=== PATIENT | male | born 1965 | race Caucasian/White ===

== ENCOUNTER → 2020-08-28 07:58 | Outpatient (CLI) | payer OTHER, SELFPAY ==
--- NOTE | ~2020-08-28 | XR_ITS ---
EXAMINATION: XR knee RT 3V DATE: 08/28/2020 08:12 INDICATION: Right knee pain. TECHNIQUE: 3 views of right knee were obtained. COMPARISON: None. FINDINGS: Bone alignment is normal. No fracture. There is mild tricompartmental osteoarthritis charac terized by tiny marginal osteophytes. There is a small knee joint effusion. IMPRESSION: 1. Mild right knee osteoarthritis. 2. Small right knee joint effusion. Reviewed, dictated and finalized at location A.
== END ==
PROVIDERS: PCP Family Medicine; Visit Provider Nurse Practitioner Family
DX: M17.11 Unilateral primary osteoarthritis, right knee (principal); M25.461 Effusion, right knee
CPT/HCPCS: 73562

== ENCOUNTER 2020-08-28 10:08 | Outpatient (CLI) | payer OTHER, SELFPAY ==
--- NOTE | 2020-08-28 10:53 | EST_ITS ---
Patient Info Name: Tyrell Tineo Age: 54 years : 1965 Gender: Male Ht: 74 in Wt: 240 lbs BSA: 2.41 m2 Exam Date: 08/28/2020 11:05 AM Exam Location: [facility] Stress Patient Status: Outpatient Admit Date: 08/28/2020 Staff Ordering Physician: Maryellen Rae Attending Provider: Maryellen Rae Exercise Technologist: Cassie Meier CT Exercise Physician: Bairon Larkin DO Exam Type: CA stress test treadmill Study Info An exercise stress test was performed. Summary 1. 1. Negative Sergio exercise stress test for ischemic ST changes by ECG criteria. 2. 2. Reduced functional capacity, achieving 8.9 METs of workload. 3. 3. Baseline hypertension. 4. 4. Appropriate HR response to exercise. 5. 5. Appropriate HR recovery at 1 minute post exercise. 6. 6. No imaging with stress testing. 7. 7. Patient informed of the above results. Protocol: Sergio Stress ECG Details Stage: REST Duration (min): 1 min : 13 sec Speed (mph): 0.0 Grade (%): 0 HR (bpm): 59 SBP (mmHg): 146 DBP (mmHg): 91 METS: --- Stage: REST Duration (min): 3 min : 22 sec Speed (mph): 0.0 Grade (%): 0 HR (bpm): 69 SBP (mmHg): 146 DBP (mmHg): 91 METS: --- Stage: STAGE 1 Duration (min): 1 min : 0 sec Speed (mph): 1.7 Grade (%): 10 HR (bpm): 96 SBP (mmHg): 146 DBP (mmHg): 91 METS: --- Stage: STAGE 1 Duration (min): 2 min : 0 sec Speed (mph): 1.7 Grade (%): 10 HR (bpm): 112 SBP (mmHg): 146 DBP (mmHg): 91 METS: --- Stage: STAGE 1 Duration (min): 3 min : 0 sec Speed (mph): 1.7 Grade (%): 10 HR (bpm): 112 SBP (mmHg): 188 DBP (mmHg): 83 METS: --- Stage: STAGE 2 Duration (min): 1 min : 0 sec Speed (mph): 2.5 Grade (%): 12 HR (bpm): 117 SBP (mmHg): 188 DBP (mmHg): 83 METS: --- Stage: STAGE 2 Duration (min): 2 min : 0 sec Speed (mph): 2.5 Grade (%): 12 HR (bpm): 123 SBP (mmHg): 202 DBP (mmHg): 85 METS: --- Stage: STAGE 2 Duration (min): 3 min : 0 sec Speed (mph): 2.5 Grade (%): 12 HR (bpm): 127 SBP (mmHg): 202 DBP (mmHg): 85 METS: --- Stage: STAGE 3 Duration (min): 1 min : 0 sec Speed (mph): 3.4 Grade (%): 14 HR (bpm): 139 SBP (mmHg): 202 DBP (mmHg): 67 METS: --- Stage: STAGE 3 Duration (min): 1 min : 0 sec Speed (mph): 3.4 Grade (%): 14 HR (bpm): 139 SBP (mmHg): 202 DBP (mmHg): 67 METS: --- Stage: RECOVERY Duration (min): 0 min : 59 sec Speed (mph): 0.0 Grade (%): 0 HR (bpm): 119 SBP (mmHg): 202 DBP (mmHg): 67 METS: --- Stage: RECOVERY Duration (min): 1 min : 59 sec Speed (mph): 0.0 Grade (%): 0 HR (bpm): 100 SBP (mmHg): 202 DBP (mmHg): 67 METS: --- Stage: RECOVERY Duration (min): 2 min : 59 sec Speed (mph): 0.0 Grade (%):
== END 2020-08-28 10:09 | disposition home or self-care (01) ==
PROVIDERS: PCP Family Medicine; Visit Provider Nurse Practitioner Family
DX: R06.02 Shortness of breath (principal); R53.83 Other fatigue
CPT/HCPCS: 93017

== ENCOUNTER 2020-11-30 08:47 | Outpatient (CLI) | payer OTHER, SELFPAY ==
--- NOTE | 2020-12-17 12:31 | WPDHOMESLEEP ---
Sleep Study - Home Unattended Date of Study: 11/30/20 Ordering Provider: Gael Dhillon MD Interpreting Provider: Imelda Matute MD Home Sleep Study Type: Apnea Link Air Height: 1.88 m Weight: 108.862 kg Body Mass Index: 30.8 Neck Circumference (inches): 17.5 [place]: 15 Reason for Sleep Study Loud snoring, witnessed apnea, chronic tiredness, non refreshing sleep Sleep History Tyrell Tineo Jr is a 55 year old man with history of loud snoring. His has witnessed him stopping breathing while sleeping. He is always tired and is not felt good or refreshed in 3 or 4 years. He has used nasal strips which did not help. There is a family history with his father falling asleep in the middle of talking with other people. Now the patient does it himself. He does not awaken from sleep feeling short of breath. He rarely wakes up at night with heartburn, belching or coughing. He constantly snores and it is always loud enough that others complain about it. He rarely has trouble sleep with a cold. He does not wake up gasping for breath during the night. He occasionally has breathing problems at night observed by others. He rarely sweats excessively night. He does not notice his heart pounding or beating irregularly night. He frequently falls asleep during the day, frequently falls asleep involuntarily and rarely falls asleep while driving. He does not fall asleep while exerting physical effort. He does not have loss of muscle tone was strong emotion. He rarely has daytime difficulties due to excessive sleepiness. He does not feel paralyzed on waking or falling asleep. He occasionally has vivid dreamlike scenes upon awakening or falling asleep. He does not feel afraid to go to sleep. He rarely has nightmares, rarely remembers his dreams. He does not have racing thoughts. He occasionally feels sad or depressed. He rarely has anxiety. He rarely has muscular tension. He frequently notices parts of his body jerking. He does not kick at night. He occasionally has crawling and aching feelings in his legs and occasionally has leg pain during the night. He does not have morning jaw pain and does not grind his teeth during sleep. He frequently is bothered by pain during the day. He occasionally is awakened by pain at night, occasionally wakes up feeling stiff in the morning with sore achy muscles and pain in the neck and spine. He has headaches, depression, fatigue, sexual problems, memory problems and he takes antacids regularly with frequent night time heartburn. Normal bedtime is between 930 and 10:30 p.m. taking 5 minutes to fall asleep waking 1 or 2 times to use the bathroom or get a drink of water. He wakes the morning between 430 and 5:00 a.m.. His weekend schedule is the same, waking slightly later between 5:00 a.m. and 5:30 a.m.. He does take naps in the afternoon or evening. A short nap is not refreshing. He is usually drowsy in the morning for 1 hour or longer. Habits: Tobacco quit 2 years ago. Caffeine 0.5 gal a day. Alcohol 3-6 beers a day. (+) recreational drugs, marijuana. [facility] Past Medical History Medical History (Updated 12/17/20 @ 12:45 by Imelda Matute MD) Body mass index (BMI) of 31.0 to 31.9 in adult Elevated BP without diagnosis of hypertension Hyperlipidemia Hypothyroidism Primary osteoarthritis of knee Family History Family History Mother Family history of malignant neoplasm Cancer Father Dementia Sibling No problems noted. Other Cerebrovascular accident Family history of cardiovascular disease Social History Social History Smoking status: Former smoker Tobacco type: cigarettes Alcohol intake: current Substance use: current Substance use type: marijuana Additional occupation/education comments: [employer]. Gender identity (if verbalized by the patient): Nabil
[2020-12-17 12:35] VITALS: BMI 30.8
== END 2020-12-03 08:57 | disposition home or self-care (01) ==
LOC: ANHCSM 08:49
PROVIDERS: PCP Family Medicine; Visit Provider Family Medicine
DX: G47.33 Obstructive sleep apnea (adult) (pediatric) (principal)
CPT/HCPCS: 95806